=== PATIENT | male | born 1990 | race African-American/Black ===

== ENCOUNTER 2022-02-16 19:49 | Emergency (ER) | payer MEDICAID, OTHER ==
[~2022-02-16] VITALS: Ht 185.4 cm; Wt 84.0 kg
[2022-02-16 20:10] VITALS: BP 136/82
[2022-02-16] MEDS ORDERED: CYCLOBENZAPRINE 10MG TABLET PO ONE (23:00)
[2022-02-16] MEDS ORDERED: LORAZEPAM 0.5MG TABLET PO ONE (23:00)
[2022-02-16] MEDS ORDERED: NAPROXEN 375MG TABLET PO ONE (23:00)
[2022-02-16] MEDS ORDERED: NAPR500T7 MT (23:37)
[2022-02-16] MEDS ORDERED: CYCL10TA21 MT (23:37)
== END 2022-02-17 03:35 | disposition home or self-care (01) ==
LOC: ER 19:49
DX: M25.512 Pain in left shoulder (principal); M54.50 Low back pain, unspecified; G89.11 Acute pain due to trauma; V49.49XA Driver injured in collision with other motor vehicles in traffic accident, initial encounter; Y93.89 Activity, other specified; Y92.488 Other paved roadways as the place of occurrence of the external cause
CPT/HCPCS: 73030; 99283